=== PATIENT | female | born 1940 | race Caucasian/White ===

== ENCOUNTER 2019-06-24 22:22 | Observation (INO) ==
--- NOTE | 2019-06-24 22:37 | PROVIDER DOCUMENTATION ---
HPI-Chest Pain - General Stated Complaint: CHEST PAIN/HIGH BP Time Seen by Provider: 06/24/19 22:24 Source: patient Allergies/Adverse Reactions: Patient Allergies Allergy/AdvReac Type Severity Reaction Status Date / Time Penicillins Allergy Unknown Verified 07/17/18 01:57 - History of Present Illness-CP Nature of Presenting Problem: 78 yof with PMH of CAD s/p CABG by Dr. Del Castillo, HTN, NSTEMI presents with c/o R sided chest pain, that is non radiating, sharp/burning in nature, that initially began on friday and woke her from sleep at 0230. Since that time the pain has been intermittent. She reports today her BP has been elevated along with the pain so she came to the ER. She denies associated SOB, N/V, Dizziness. Location: reports: substernal (R) Chest Pain Radiation: reports: no radiation Quality of Pain: reports: burning, sharp Severity in ED: moderate Onset/Duration: 3 days ago Timing: intermittent Context/Activities at Onset: reports: none Modifying Factors: improves with: nothing Nitro Today/Relief: no nitro taken today Aspirin Treatment Today: 325 mg x 1, provided at home Similar Symptoms Previously?: No Recently Seen Here or By Another Healthcare Provider: No Review of Systems - Adult - REVIEW OF SYSTEMS - ADULT Constitutional: reports: no symptoms reported. denies: see HPI, chills, fever, fatique, night sweats, weight gain, weight loss, other Eyes: reports: no symptoms reported. denies: see HPI, discharge, dry eyes, decreased vision, blurred vision, double vision, eye pain, redness, other Ears, Nose, Mouth & Throat: reports: no symptoms reported. denies: see HPI, ear discharge, ear pain, hearing loss, tinnitus, epistaxis, sinus problem, nose pain, loose teeth, mouth/dental pain, mouth swelling, hoarseness, throat pain, throat swelling, other Cardiovascular: reports: see HPI, chest pain. denies: no symptoms reported, edema, heart murmur, irregular heart rate, orthopnea, palpitations, poor circulation, PND, syncope, other Respiratory: reports: no symptoms reported. denies: see HPI, chronic cough, cough, dyspnea on exertion, excessive sputum production, hemoptysis, pleurisy, shortness of breath, wheezing, other Gastrointestinal: reports: no symptoms reported. denies: see HPI, abdominal pain, hematemesis, constipation, diarrhea, difficulty swallowing, frequent heartburn, nausea, poor appetite, rectal bleeding, vomiting, other Genitourinary: reports: no symptoms reported. denies: see HPI, dysuria, discharge, frequency, flank pain, frequent UTI's, hematuria, hesitency, incontinence, urinary retention, urgency, other Musculoskeletal: reports: no symptoms reported. denies: see HPI, bone pain, back pain, frequent leg cramps, joint pain, joint swelling, muscle aches, muscle weakness, neck pain, other Integumentary: reports: no symptoms reported. denies: see HPI, hives, hair loss, itching, mole changes, nail changes, rash, skin sores/ulcer, skin thickening, other Neurological: reports: no symptoms reported. denies: see HPI, ataxia, dizziness/vertigo, headache/migraines, loss of balance, numbness, paresthesia, seizure, slurred speech, syncope, tremors, other Psychiatric: reports: no symptoms reported. denies: see HPI, anxiety, anti- depressant use, alcohol/drug dependence, depression, emotional problems, insomnia, panic attacks, suicidal thoughts, other Endocrine: reports: no symptoms reported. denies: see HPI, change in skin pigment, excessive sweating, goiter, cold intolerance, heat intolerance, increased hunger, increased thirst, polyuria, other Hematologic/Lymphatic: reports: no symptoms reported. denies: see HPI, blood clots, easy bruising, low blood count, lymphedema, prolonged bleeding, swollen lymph nodes, transfusions, other Allergic/Immunologic: reports: no symptoms reported. denies: see HPI, allergic reactions, allergic rhinitis, asthma, eczema, food allergy, frequent infections, hay fever, hives, positive PPD, urticaria, other Past History - Adult - PAST MEDICAL HISTORY-ADULT Review of Records: reports: Nursing Assessment Review, Social history reviewed & non-contributory. Major Childhood Illnesses: reports: denies history Cardiovascular: reports: CAD Respiratory: reports: denies history Gastrointestinal: reports: denies history Obstetrical/Gynecological: reports: denies history Genitourinary: reports: denies history Musculoskeletal: reports: denies history Neurological: reports: denies history Endocrine/Immune: reports: denies history Other Conditions: reports: denies history - PRIOR SURGERIES/PROCEDURES Surgical/Procedure History: reports: CABG - IMMUNIZATION STATUS Childhood Immunizations: See Nurse Assessment Flu Vaccine: See Nurse Assessment - FAMILY HISTORY Family History: CAD over 55 yo, CAD under 55yo, HTN Physical Exam-General - PHYSICAL EXAM-ADULT Initial Vital Signs Reviewed: Yes - CONSTITUTIONAL General Appearance: alert, no apparent distress - EYES Eyes: PERRL/EOMI, pink conjunctivae - HEAD, EARS, NOSE, MOUTH & THROAT HENMT: normocephalic/atraumatic, moist mucous membranes, normal ENT inspection - NECK Neck: non-tender, full range of motion, supple - RESPIRATORY Respiratory: chest non-tender, lungs clear, normal breath sounds, no pleuratic chest pain, no respiratory distress, no accessory muscle use - CARDIOVASCULAR Cardiovascular: normal peripheral pulses, regular rate, rhythm, no gallop, no JVD. negative: no edema (mild pedal +1) - GASTROINTESTINAL (ABDOMEN) Abdominal Exam: normal bowel sounds, non tender, soft, no organomegaly, no pulsatile mass - LYMPHATIC Lymphatic: no adenopathy - MUSCULOSKELETAL Back Exam: normal inspection, no CVA tenderness, no vertebral tenderness Extremity: normal range of motion, non-tender, normal gait, normal inspection, no pedal edema Peripheral Pulses: radial (R): 2+, radial (L): 2+ - SKIN Integumentary: normal color, normal turgor, warm/dry - NEUROLOGIC Neurologic: grossly normal - PSYCHIATRIC Psych/Mental Status: normal mood/affect, oriented x 3 - HEART Score HEART Score: History: Moderately Suspicious HEART Score: ECG: Non-Specific Repolarization Disturbance/LBBB/PM HEART Score: Age: > or = 65 Years HEART Score: Risk Factors for Atherosclerotic Disease: > or = 3 Risk Factors or History of Atherosclerotic Disease HEART Score: Troponin: < or = Normal Limit Total HEART Score:: 6 Progress - PLAN OF CARE/RESULTS Progress/Plan/Lab Results: Vital Signs - 8 hr 06/24/19 22:28 Temperature 98.5 F Pulse Rate 75 Respiratory Rate 18 Blood Pressure 202/102 O2 Sat by Pulse Oximetry 94 L Laboratory Results - last 24 hr 06/24/19 06/24/19 06/24/19 22:37 22:37 22:37 WBC 11.94 H RBC 4.19 L Hgb 12.8 Hct 38.4 MCV 91.6 MCH 30.5 MCHC 33.3 RDW Std Deviation 13.3 Plt Count 249 MPV 9.4 Immature Gran % (Auto) 0.2 Neut % (Auto) 57.6 Lymph % (Auto) 32.8 Mobile % (Auto) 8.6 Eos % (Auto) 0.4 Baso % (Auto) 0.4 Immature Gran # (Auto) 0.02 Neut # (Auto) 6.87 H Lymph # (Auto) 3.92 H Mobile # (Auto) 1.03 H Eos # (Auto) 0.05 Baso # (Auto) 0.05 Sodium 138 Potassium 4.1 Chloride 98 Carbon Dioxide 21 L Anion Gap 19 BUN 18 Creatinine 0.7 Estimated GFR/1.73 m2 > 60 BUN/Creatinine Ratio 26 Glucose 123 H Calculated Osmolality 279 Calcium 9.7 Total Bilirubin 1.30 H AST 17 ALT 13 Alkaline Phosphatase 73 Creatine Kinase 65 Troponin T High Sens Brt-P-Phldpeejorb Pept 683 H Total Protein 7.8 Albumin 4.5 Globulin 3.0 Albumin/Globulin Ratio 1.0 06/24/19 22:37 WBC RBC Hgb Hct MCV MCH MCHC RDW Std Deviation Plt Count MPV Immature Gran % (Auto) Neut % (Auto) Lymph % (Auto) [place] % (Auto) Eos % (Auto) Baso % (Auto) Immature Gran # (Auto) Neut # (Auto) Lymph # (Auto) Mobile # (Auto) Eos # (Auto) Baso # (Auto) Sodium Potassium Chloride Carbon Dioxide Anion Gap BUN Creatinine Estimated GFR/1.73 m2 BUN/Creatinine Ratio Glucose Calculated Osmolality Calcium Total Bilirubin AST ALT Alkaline Phosphatase Creatine Kinase Troponin T High Sens 15 [id number]-Ztgnnkfbxyf Pept Total Protein Albumin Globulin Albumin/Globulin Ratio Orders Category Date Time Status Admit - [facility] Routine AdmDCTranf 06/25/19 00:05 Active Activity - Bed Rest with BRP ORDERED Care 06/25/19 00:05 Active Saline Loc DIRECTED Care 06/25/19 00:05 Ordered Saline Loc NOW Care 06/24/19 23:43 Active Vital Signs Order ROUTINE Care 06/25/19 00:05 Ordered Z-Document. for Tele Applied ORDERED Care 06/25/19 00:06 Ordered Heart Healthy Diet Diet 06/25/19 00:06 Ordered CHEST-2 VIEWS [RAD] Stat Exams 06/24/19 22:24 Taken BNP [PRO B-NATRIURETIC PEPTIDE] Stat Lab 06/24/19 22:37 Completed CBC WITH ELECTRONIC DIFF [HEME] Stat Lab 06/24/19 22:37 Completed CK PROFILE [SP CHEM] Stat Lab 06/24/19 22:37 Completed COMPREHENSIVE METABOLIC PANEL [CHEM] Stat Lab 06/24/19 22:37 Completed TROPONIN T HIGH SENSITIVITY Stat Lab 06/24/19 22:37 Completed TROPONIN T HIGH SENSITIVITY Stat Lab 06/25/19 00:30 Uncollected Nitroglycerin Med 06/24/19 23:42 Discontinued 0.5 inch TOP NOW ONE Telemetry [OM.EQ] Routine Oth 06/25/19 00:05 Active EKG [EKG] Stat Ther 06/24/19 22:24 Ordered Transfer/Admit Order [TRANSFER] Routine Transfer 06/25/19 00:06 Ordered Result Diagrams: 06/24/19 22:37 06/24/19 22:37 - EKG 1 Time of EKG reading by physician:: 22:27 EKG Read and Signed by:: Benito Kraft EKG Interpretation (*Must complete 3 of following elements*): Abnormal Rate: 69 Rhythm: SR with sinus arrythmia [place]: normal QRS: normal SC Interval: normal ST Wave: non-specific ST changes Prior EKG Comparison: changes noted - XRAY 1 XRAY Study: Chest Impression: Abnormal (Sternotomy wires in place, No PNA or Pneumothorax noted) - CONSULTS/PCP/HOSPITALIST Notification #1 *Consult/PCP/Hospitalist*: Dr. Jhaveri Time Discussed: 00:07 Consult Disposition: Admit (continue home medications, serial cardiac enzymes) Departure - Departure Date of Disposition Decision: 06/25/19 Time of Disposition Decision: 00:08 DIAGNOSIS: Chest pain, Hypertensive urgency Disposition: ADMITTED INPATIENT 09 Certified Medical Emergency: Emergent Condition: Stable Referrals and Follow-Ups: Aakash Jhaveri MD [Primary Care Provider] - - Critical Care Note This patient required my direct & personal management of CC.: No Attestation - Physician/ FAISAL Attestation Patient care was provided by Advanced Practice Provider:: Yes Advanced Practice Provider:: Caroline Ruano Advanced Practice Provider documentation review:: The Mid-level provider documentation, treatment plan and medical decision making was reviewed by the physician who agrees with all treatment and medical decision making by the MLP. The physician spent face to face time with patient:: No Advanced Practice Provider documentation review:: Supervising physician onsite and consulted in the evaluation and care of this patient. The physician did not have a face to face encounter with the patient.
[2019-06-24 22:46] LABS: BASO# 0.05 X1000 (0.0-0.2); BASO% 0.4 % (0.0-0.8); EOS# 0.05 X1000 (0.0-0.7); EOS% 0.4 % (0.0-10.0); HEMATOCRIT 38.4 % (37.0-47.0); HEMOGLOBIN 12.8 g/dL (12.0-16.0); IMM GRAN# 0.02 X1000 (0.0-0.04); IMM GRAN% 0.2 % (0.0-0.5); LYMPH# 3.92 X1000 (1.2-3.4); LYMPH% 32.8 % (20.5-51.1); MCH 30.5 PG (27-31); MCHC 33.3 g/dL (33-37); MCV 91.6 FL (81-99); MONO# 1.03 X1000 (0.11-0.59); MONO% 8.6 % (1.7-9.3); MPV 9.4 FL (7.4-10.4); NEUT# 6.87 X1000 (1.4-6.5); NEUT% 57.6 % (42.2-75.2); PLT 249 X1000 (130-400); RBC 4.19 XMIL (4.2-5.4); RDW 13.3 % (11.5-14.5); WBC 11.94 X1000 (4.8-10.8)
[2019-06-24 23:17] LABS: AGAP 19; ALBUMIN 4.5 g/dL (3.5-5.0); ALKALINE PHOSPHATASE 73 U/L (32-104); BUN 18 mg/dL (8-22); CALCIUM 9.7 mg/dL (8.8-10.2); CHLORIDE 98 mmol/L (98-107); CK PROFILE 65 U/L (24-173); COSMO 279; CREATININE 0.7 mg/dL (0.5-0.9); ESTIMATED GFR > 60; GLUCOSE 123 mg/dL (70-104); GOT 17 U/L (10-30); GPT 13 U/L (10-36); POTASSIUM 4.1 mmol/L (3.5-5.1); SODIUM 138 mmol/L (136-145); TCO2 21 mmol/L (25-35); TOTAL PROTEIN 7.8 g/dL (6.3-8.3)
[2019-06-24] MEDS ORDERED: NITROGLYCERIN TOP ONE (23:42)
--- NOTE | 2019-06-25 05:39 | Diag Imaging Result Doc PS360 ---
EXAM: CHEST-2 VIEWS HISTORY: CP TECHNIQUE: Two views COMPARISON: 07/17/2018 FINDINGS: The lungs are well expanded. The heart is not enlarged. There are sternal wires. The vessels are not distended. There are no infiltrates. No pleural effusions. Many scattered granuloma. Mild scoliosis. IMPRESSION: No acute abnormality. Electronically signed by Deshawn Liriano 06/25/2019 5:37 AM
[2019-06-25] MEDS ORDERED: HYDROCHLOROTHIAZIDE PO SCH (09:00)
[2019-06-25] MEDS ORDERED: COZAAR PO SCH (09:00)
[2019-06-25] MEDS ORDERED: ASPIRIN PO SCH (09:00)
[2019-06-25] MEDS ORDERED: COREG PO SCH (09:00)
[2019-06-25 10:43] VITALS: BP 132/60
--- NOTE | 2019-06-25 17:24 | EKG Report ---
Test Performed on : 06/24/2019 10:26:20 PM Test Reason : cp Blood Pressure : / mmHG Vent. Rate : 069 BPM Atrial Rate : 069 BPM P-R Int : 168 ms QRS Dur : 076 ms QT Int : 394 ms P-R-T Axes : 081 -19 057 degrees QTc Int : 422 ms Normal sinus rhythm. with sinus arrhythmia. Nonspecific ST and T wave abnormality Abnormal ECG When compared with ECG of 17-JUL-2018 07:08, Criteria for Inferior infarct are no longer present Unconfirmed Result
[2019-06-25] MEDS ORDERED: LIPITOR PO SCH (21:00)
--- NOTE | 2019-07-24 08:33 | HISTORY AND PHYSICAL ---
HISTORY OF PRESENT ILLNESS: She presented to the emergency room to be seen about some chest discomfort. She has a past history of coronary artery disease, status post CABG by Dr. Del Castillo. She has a history of hypertension, NSTEMI. She presents with some right-sided chest pain not radiating, sharp and burning in nature, not pressure that initially began on Friday and woke her up from her sleep at 2:30 a.m. Since that time, the pain has been intermittent. She reports today her BP has been elevated along with the pain, so she came to the ER. She denies any shortness of breath, nausea, vomiting or dizziness. The pain is substernally located. It does not radiate and is described as burning and sharp. It is moderate in intensity. It has been going off and on for 3 days intermittent. She has no triggers or relievers. Nothing seems to improve it. She has taken some nitroglycerin with no relief. She takes an aspirin 325 that she took at home. She has not had any similar symptoms to this, and she arrives to the ER. Her temperature was 98.5, pulse 75, respirations 18, blood pressure 202/102, O2 sat 94%. Her physical exam was unremarkable. Her initial data base showed white count 11,940, hematocrit 38.4, platelet count 249,000. Electrolytes were normal. C02 21, potassium 4.1, BUN 18, creatinine 0.7, estimated GFR greater than 60, BUN/creatinine ratio 26, glucose 123, total bilirubin 1.3. Liver functions and cardiac enzymes were negative. BNP was slightly elevated at 683. She had an EKG which showed sinus rhythm with sinus arrhythmia, rate around 69, nonspecific ST segment changes. Chest x-ray showed a sternotomy, no pneumonia or pneumothorax. Because of the chest pain and elevation of her blood pressure, they felt that she needs to be monitored in the hospital. PAST MEDICAL HISTORY: Other than coronary artery disease and hypertension is unremarkable. Cardiovascular: She has had no significant problems since her bypass in the past. The only surgery she had is the CABG. The past medical history is otherwise negative. ALLERGIES: Penicillin. SOCIAL HISTORY: She is a nonsmoker. She does not drink alcohol. PHYSICAL EXAMINATION: HEENT: Head was normocephalic. EENT negative. CHEST: Clear bilaterally. CARDIOVASCULAR: Regular rate and rhythm. No murmurs, gallops, clicks or rubs. ABDOMEN: Soft. No hepatosplenomegaly. No CVA tenderness. EXTREMITIES: Negative for clubbing, cyanosis or edema. ADMITTING DIAGNOSES: Atypical chest pain, history of hypertension with current elevated blood pressure, history of ischemic heart disease, status post CABG, followed by Dr. Del Castillo in [place]. She was admitted to rule out enzymatic GA. cc: Aakash Jhaveri MD
--- NOTE | 2019-07-24 09:32 | DISCHARGE SUMMARY ---
ADMISSION DATE: 06/25/2019 DISCHARGE DATE: 06/25/2019 A 78-year-old patient of mine who has a history of ischemic heart disease, had a CABG many years ago, followed by Dr. Del Castillo in [place] for hypertension and coronary artery disease. She presented with some atypical chest pain of 3 day duration and was admitted from the ER. Her database includes stable vital signs. She was in the hospital for 1 night. Her imaging studies include a chest x-ray that was negative. Her white count on admission was 11,940 with a relatively normal differential, platelet count was 249,000, hematocrit was 38. Coag, a D-dimer was less than 0.27. Her serial troponins 1, 2, 3, 4, were all negative. BNP was 683. Her electrolytes were normal, CO2 was slightly at 21, BUN was 18, creatinine 0.7, GFR greater than 60, BUN/creatinine ratio was 26. Her pain subsided. We discharged her. We are going to follow her up in the office. cc: Aakash Jhaveri MD
== END 2019-06-25 10:38 | disposition home or self-care (01) ==
LOC: P.EDIPHOLD 22:22 → P.ED 22:22 → P.EDIPHOLD 06-25 10:40
PROVIDERS: ADMIT Internal Medicine; ATTEND Internal Medicine